=== PATIENT | female | born 1980 | race Caucasian/White ===

== ENCOUNTER → 2022-08-09 09:01 | Outpatient (BNVA) | payer OTHER, SELFPAY | PROVIDERS: PCP Nurse Practitioner Primary Care; Visit Provider Hospitalist | DX: J18.9 Pneumonia, unspecified organism (principal) ==

== ENCOUNTER 2022-08-16 14:51 | Outpatient (REF) | payer OTHER, SELFPAY ==
--- NOTE | 2022-08-16 17:25 | PFT_ITS ---
INDICATION: Dyspnea. SPIROMETRY: FEV1 to FVC of 80% with an FEV1 of 2.86 L, which is 77% predicted, and FVC of 3.5 L, which is 86% predicted. No significant response to bronchodilators noted. Maximum voluntary ventilation 113% predicted. 88% predicted with an expiratory reserve volume of 19% predicted secondary to elevated BMI. DIFFUSION CAPACITY: DLCO of 73% predicted. INTERPRETATION: No obstructive, no restrictive ventilatory defect identified. No significant response to bronchodilators noted. No maximum voluntary ventilation. Lung volumes are within normal limits except for decrease in expiratory reserve volumes secondary to an elevated BMI. The patient does have an isolated mild diffusion impairment. Should correct for hemoglobin. Clinical correlation warranted. Higinio Carreon MD MR/MODL / [id number]
== END 2022-08-16 14:52 | disposition home or self-care (01) ==
LOC: HO.RESP 14:51
PROVIDERS: PCP Nurse Practitioner Primary Care; Visit Provider Hospitalist
DX: J45.909 Unspecified asthma, uncomplicated (principal); J18.9 Pneumonia, unspecified organism
CPT/HCPCS: 94060; 94727; 94729

== ENCOUNTER → 2022-09-20 15:17 | Outpatient (BNVA) | payer OTHER, SELFPAY | PROVIDERS: PCP Nurse Practitioner Primary Care; Visit Provider Hospitalist | DX: J45.909 Unspecified asthma, uncomplicated (principal); J18.9 Pneumonia, unspecified organism ==

== ENCOUNTER 2023-01-31 15:19 | Outpatient (AMB) | payer OTHER, SELFPAY ==
[2023-01-31 15:27] VITALS: PULSE 77; O2SAT 98; BMI 37.4
--- NOTE | 2023-01-31 15:27 | MHC.OFFVIS ---
Intake Vital Signs 01/31/23 15:27 Height 5 ft 7 in Weight 239 lb BMI 37.4 Pulse 77 Pulse Source Pulse Oximeter Pulse Oximetry (%) 98 Oxygen Delivery Method Room Air Intake Visit Reasons: Abnormal Chest X Ray Fructose Loader Required: No Allergies zoloft Allergy (Severe, Uncoded 01/31/23 15:29) Rash HPI HPI Comments History of Present Illness Details The patient is a 41 year woman with a known history of lifelong asthma. She has been well controlled on Advair and also singular. The patient was in a usual state health until the 1st time that she received the COVID vaccine. She had an allergic reaction. Subsequently after that she started having some chest tightness. That is when she started the Singulair and she seemed to improve her respiratory symptoms. Again she continue with the Advair. Subsequently after that the patient developed COVID sometime in the fall of 2021. Initially she did well in that she started developing significant chest congestion cough productive in nature along with fevers. She had an x-ray at that point which demonstrated a right hemithorax airspace disease consistent with bronchopneumonia. The patient was given a course of prednisone and also Levaquin. Her symptoms improved although she continued to have chest tightness and wheezing. She has been on Advair for many years. She subsequently was switched over to Wixela because of insurance per friends. She is on 100/50 mcg dose. She continues to have daily wheezing. She did have a repeat chest x-ray demonstrating interval improvement of the airspace disease on the right although evidence of peribronchial coughing and some airspace disease suggesting some residual changes. On examination she still has some expiratory wheezing but no focal crackles or bronchial breath sounds. At this point will try to maximize respiratory therapy. The patient will need a repeat chest x-ray and also PFTs. Will also request blood work to assess for any other potential triggers for her asthma. 09/20/2022 the patient is here for a pulmonary follow-up visit. Overall the patient did better on the Trelegy inhaler. She did feel significant improvement when she switched over from Wixela to Trelegy 200. closely to be in the trying she was exposed to sick contacts. And subsequently after that she started developing worsening cough. Cough is productive in nature. Moderate severity. Seem to come down although she is still having it. She still continues to Wixela at this time. She did have a chest x-ray at [facility] which was read as no acute disease. I do have to review myself. In addition to that she did undergo pulmonary function studies demonstrating no evidence of any obstructive nor restrictive ventilatory defects. She did have a slight decrease in the diffusing capacity. Unfortunately, the CBC did not have the requested differential perform. Otherwise her immunoglobulins are within normal limits in her IgE level was within normal limits. She did have some minimal allergies, Including to dogs and cats and also of very low reaction to Ignacia. This point I do not believe that this is of any consequence. On examination she did have some inspiratory wheezing on her left base suggesting of some degree of bronchitis and mucus plugging. Therefore will be important to treat the patient for a lower respiratory infection. Up the 01/31/2023 the patient is here for pulmonary follow-up visit. She continues to have issues with chest tightness and wheezing. Ylhg-ea-tahfncam severity. Had done well on Trelegy and then will switch over to Wixela. Only partially helpful. So therefore she was placed back on Trelegy 100. She may benefit from going up to the 200 again since she is still having wheezing on examination. The patient did have blood work demonstrating significant allergies to dust mites. She does have rugs in the house. Other allergies noted. If the patient does not respond to the maximum therapy and will consider biologics. Also she continues to have dyspnea on exertion [id number] severity. Her chest x-rays in the past have demonstrated airspace disease. In addition to that would be reasonable to undergo a CT scan of the chest to further address her ongoing symptoms. The patient will try the higher dose Trelegy. If she is no better after a few weeks she will call in order to order CT scan in looking to biologics. 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 Social History (Updated 08/09/22 @ 09:17 by LEELA Aldana) Patient Tobacco Use Status: Never used Tobacco Review of Systems Const Denies fever(s) Eyes Denies blurry vision ENT Denies sore throat Card Denies chest pain Resp Reports chest congestion, Reports cough and Reports wheezing (on force exhalation) GI Reports no additional complaints Musc Reports no additional complaints Skin/Breast Reports rash Neuro Reports no additional complaints Porfirio/Lymph Denies easy bleeding and Denies easy bruising Aller/Immun Reports wheezing (on force exhalation) Physical Exam Vital Signs: Last Vital Signs Pulse 77 01/31/23 15:27 Pulse Ox 98 01/31/23 15:27 Oxygen Delivery Method Room Air 01/31/23 15:27 BMI result Body Mass Index 37.4 Const General: comfortable HEENT Head: Yes atraumatic Eyes General: appearance normal, both eyes and all related structures Neck Neck: Yes supple Chest Chest palpation & inspection: normal inspection of the chest Resp Effort & Inspection: normal respiratory effort Auscultation: no crackles, no rales, wheezes inspiratory wheezes and left lower and no bronchial breath sounds Cardio Rate: regular rate Rhythm: regular rhythm Heart sounds: S1 normal heart sound present and S2 normal heart sound present GI Auscultation: normal bowel sounds Skin General skin exam: no rashes or lesions noted Extrem General: Yes no clubbing, cyanosis or edema Immunizations pneumoc 20-walter conj-dip cr(PF) Performing Provider: Higinio Carreon MD Administered by: Latasha Myers LPN on 01/31/23 16:01 Dose Route Admin Location Lot Number Expiration Date [employer] 0.5 mL IM Left Deltoid [id number] 05/24/24 6118-3913-56 [employer] VIS Given Date VIS Provided VIS Publication Date 01/31/23 Single Vaccine 22 Eligibility Eligibility Date Funding Source Not [facility] Eligible 01/31/23 Private Assessment & Plan Assessment & Plan (1) Asthma: Code(s): J45.909 - Unspecified asthma, uncomplicated Qualifiers: Asthma complication type: uncomplicated Asthma persistence: persistent Asthma severity: moderate Qualified Code(s): J45.40 - Moderate persistent asthma, uncomplicated (2) Bronchitis: Code(s): J40 - Bronchitis, not specified as acute or chronic Plan increase Trelegy 200 continue DIMITRY as needed continue singulair Call if no better, will request CT chest Consider biologics if no better F/U 3 months Orders: Orders Pneumococcal 20 Immunization 01/31/23 J18.9 - Pneumonia, unspecified organism Medications: New ctqjnltsorh-athjxaehp-tnuglaim 200-62.5-25 mcg (Trelegy Ellipta) 1 inh inhalation DAILY 30 days 60 ea 12RF Coding Level of Care Code Est Pt Level 4 (95922) Diagnoses Asthma J45.40 Asthma complication type: uncomplicated Asthma persistence: persistent Asthma severity: moderate Bronchitis J40 Time Spent (min) 19
== END 2023-01-31 16:05 | disposition home or self-care (01) ==
PROVIDERS: PCP Nurse Practitioner Primary Care; Visit Provider Hospitalist
DX: J45.40 Moderate persistent asthma, uncomplicated (principal)
CPT/HCPCS: 99214

== ENCOUNTER → 2023-01-31 15:19 | Outpatient (BNVA) | payer OTHER, SELFPAY | PROVIDERS: Visit Provider Hospitalist | DX: J45.40 Moderate persistent asthma, uncomplicated (principal); J40 Bronchitis, not specified as acute or chronic; Z79.899 Other long term (current) drug therapy; Z23 Encounter for immunization | CPT/HCPCS: 90471; 90677 ==

== ENCOUNTER 2023-05-17 15:01 | Outpatient (AMB) | payer OTHER, SELFPAY ==
--- NOTE | 2023-05-17 15:06 | MHC.OFFVIS ---
Intake Vital Signs 05/17/23 15:07 Height 5 ft 7 in Weight 240 lb BMI 37.6 Pulse 75 Pulse Source Pulse Oximeter Pulse Oximetry (%) 99 Oxygen Delivery Method Room Air Intake Visit Reasons: dyspnea Training Generalist Required: No Allergies zoloft Allergy (Severe, Uncoded 05/17/23 15:08) Rash HPI HPI Comments History of Present Illness Details The patient is a 42 year woman with a known history of lifelong asthma. She has been well controlled on Advair and also singular. The patient was in a usual state health until the 1st time that she received the COVID vaccine. She had an allergic reaction. Subsequently after that she started having some chest tightness. That is when she started the Singulair and she seemed to improve her respiratory symptoms. Again she continue with the Advair. Subsequently after that the patient developed COVID sometime in the fall of 2021. Initially she did well in that she started developing significant chest congestion cough productive in nature along with fevers. She had an x-ray at that point which demonstrated a right hemithorax airspace disease consistent with bronchopneumonia. The patient was given a course of prednisone and also Levaquin. Her symptoms improved although she continued to have chest tightness and wheezing. She has been on Advair for many years. She subsequently was switched over to Wixela because of insurance per friends. She is on 100/50 mcg dose. She continues to have daily wheezing. She did have a repeat chest x-ray demonstrating interval improvement of the airspace disease on the right although evidence of peribronchial coughing and some airspace disease suggesting some residual changes. On examination she still has some expiratory wheezing but no focal crackles or bronchial breath sounds. At this point will try to maximize respiratory therapy. The patient will need a repeat chest x-ray and also PFTs. Will also request blood work to assess for any other potential triggers for her asthma. 09/20/2022 the patient is here for a pulmonary follow-up visit. Overall the patient did better on the Trelegy inhaler. She did feel significant improvement when she switched over from Wixela to Trelegy 200. closely to be in the trying she was exposed to sick contacts. And subsequently after that she started developing worsening cough. Cough is productive in nature. Moderate severity. Seem to come down although she is still having it. She still continues to Wixela at this time. She did have a chest x-ray at [facility] which was read as no acute disease. I do have to review myself. In addition to that she did undergo pulmonary function studies demonstrating no evidence of any obstructive nor restrictive ventilatory defects. She did have a slight decrease in the diffusing capacity. Unfortunately, the CBC did not have the requested differential perform. Otherwise her immunoglobulins are within normal limits in her IgE level was within normal limits. She did have some minimal allergies, Including to dogs and cats and also of very low reaction to Ignacia. This point I do not believe that this is of any consequence. On examination she did have some inspiratory wheezing on her left base suggesting of some degree of bronchitis and mucus plugging. Therefore will be important to treat the patient for a lower respiratory infection. 01/31/2023 the patient is here for pulmonary follow-up visit. She continues to have issues with chest tightness and wheezing. Bvjp-hs-zxaekcya severity. Had done well on Trelegy and then will switch over to Wixela. Only partially helpful. So therefore she was placed back on Trelegy 100. She may benefit from going up to the 200 again since she is still having wheezing on examination. The patient did have blood work demonstrating significant allergies to dust mites. She does have rugs in the house. Other allergies noted. If the patient does not respond to the maximum therapy and will consider biologics. Also she continues to have dyspnea on exertion ddrz-ow-rwmcnkma severity. Her chest x-rays in the past have demonstrated airspace disease. In addition to that would be reasonable to undergo a CT scan of the chest to further address her ongoing symptoms. The patient will try the higher dose Trelegy. If she is no better after a few weeks she will call in order to order CT scan and looking into biologics. 05/17/2023 the patient is here for a pulmonary follow-up visit. The patient has been feeling a little bit better overall. Several weeks ago the patient started having hip discomfort. Then she became concerned by the fact that she is been on inhaled steroids now for about 20 years. She decided to hold off on the Trelegy inhaler altogether. She wanted to do a trial to be off the medicine and then to be assessed today. In the meantime she did develop a upper respiratory illness. Positive sick contacts at work. She did develop a cough and she has a little bit of a cough now but tends to be nonproductive in nature. She does have some nasal congestion postnasal drip. She does not feel that she needs anything right now 4. I will send the Odalysleonelluis armando Setrn she can pick him up if she likes as far as for a prescription cough medication. The patient did have blood work again. No evidence of any eosinophilia. Her IgE levels have been flat so therefore she is not a candidate for biologics at this time the patient is keen on trying to minimize medications at this time. We did talk about using Symbicort as a good option where can work good as a maintenance inhaler and also she can use it as needed based on the fact that it works quickly and is also longer acting. The patient is receptive to this. Therefore she will hold off on the Trelegy and switch over to Symbicort twice a day as needed. If the patient develops any worsening cough or chest congestion she was can call and we can treat her for an acute respiratory illness. Clinically the patient is doing well so therefore will follow-up next fall. If however the patient develops any worsening symptoms then we can reassess at an earlier time. 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 Pneumonia Asthma Social History (Updated 08/09/22 @ 09:17 by LEELA Aldana) Patient Tobacco Use Status: Never used Tobacco Physical Exam Vital Signs: Last Vital Signs Pulse 75 05/17/23 15:07 Pulse Ox 99 05/17/23 15:07 Oxygen Delivery Method Room Air 05/17/23 15:07 BMI result Body Mass Index 37.6 Const General: comfortable HEENT Head: Yes atraumatic Eyes General: appearance normal, both eyes and all related structures Neck Neck: Yes supple Chest Chest palpation & inspection: normal inspection of the chest Resp Effort & Inspection: normal respiratory effort Auscultation: no crackles, no rales, wheezes (end exp wheezing and coughing) and no bronchial breath sounds Cardio Rate: regular rate Rhythm: regular rhythm Heart sounds: S1 normal heart sound present and S2 normal heart sound present GI Auscultation: normal bowel sounds Skin General skin exam: no rashes or lesions noted Extrem General: Yes no clubbing, cyanosis or edema Assessment & Plan Assessment & Plan (1) Asthma: Code(s): J45.909 - Unspecified asthma, uncomplicated Qualifiers: Asthma complication type: uncomplicated Asthma persistence: persistent Asthma severity: moderate Qualified Code(s): J45.40 - Moderate persistent asthma, uncomplicated (2) Cough: Code(s): R05.9 - Cough, unspecified Plan stop Trelegy 200 start Symbicort twice a day as needed continue DIMITRY as needed continue singulair Not a candidate for Biologics with normal Eos and IgE F/U 8-12months Medications: New budesonide-formoterol 160-4.5 mcg/actuation (Symbicort) 2 puffs inhalation BID 30 days 10.2 grams 11RF J44.89 - Other specified chronic obstructive pulmonary disease benzonatate 200 mg PO BID 30 days PRN 60 caps 0RF cough Coding Level of Care Code Est Pt Level 4 (74822) Diagnoses Moderate persistent asthma without complication J45.40 Asthma complication type: uncomplicated Asthma persistence: persistent Asthma severity: moderate Cough R05.9 Time Spent (min) 18
[2023-05-17 15:07] VITALS: PULSE 75; O2SAT 99; BMI 37.6
== END 2023-05-17 15:31 | disposition home or self-care (01) ==
PROVIDERS: PCP Nurse Practitioner Primary Care; Visit Provider Hospitalist
DX: J45.40 Moderate persistent asthma, uncomplicated (principal); R05.9 Cough, unspecified
CPT/HCPCS: 99214

== ENCOUNTER → 2023-05-17 15:01 | Outpatient (BNVA) | payer OTHER, SELFPAY | PROVIDERS: PCP Nurse Practitioner Primary Care; Visit Provider Hospitalist ==